=== PATIENT | female | born 1945 | race Caucasian/White ===

== ENCOUNTER 2016-12-05 11:01 | Emergency (ER) | payer OTHER ==
[2016-12-05 11:13] VITALS: RESP 16; TEMP 98.2
--- NOTE | 2016-12-05 12:16 | EDPHY ---
H & P Time Seen by Provider: 12/05/16 12:12 HPI/ROS: HPI: Ms. 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 Patient reports 3 weeks ago she was doing a particular move and strained her left inner groin. She has been resting it without relief. She has no primary care provider. Modifying Factors: No [id number] pain medications have been tried Comment: ROS: Eyes: No blurred vision Respiratory: No shortness of breath, no cough Cardiovascular: No chest pain Gastrointestinal: No nausea, no vomiting no diarrhea Genitourinary: No dysuria Extremities: No myalgias Neurologic: No weakness, no numbness Skin: No rashes Hematologic: No bruising, no bleeding MEDICAL/SURGICAL HISTORY: Appendectomy. Generally healthy. Social History: No primary care provider. Smoking Status: Never smoked Physical Exam: CONSTITUTIONAL: Physically fit elderly white female who appears younger than stated age, awake and alert, no obvious distress HEENT: Atraumatic and normocephalic, PERRL, EOMI. Tympanic membranes clear. . Oropharynx clear, no exudate and moist pink mucosa. Airway patent. No lymphadenopathy. No meningismus. Cardiovascular: Normal S1/S2, regular rate, regular rhythm, without murmur rub or gallop. PULMONARY/CHEST: Symmetrical and nontender. Clear to auscultation bilaterally Good air movement. No accessory muscle usage. ABDOMEN: Soft, nondistended, nontender, no rebound, no guarding, no peritoneal signs, no masses or organomegaly. No CVAT. EXTREMITIES: 2/2 pulses, no deformities, no clubbing, no cyanosis or edema. Left inner groin tenderness to palpation; no masses; no hernia. Left hip internal rotation no pain, external rotation pain, no pain with flexion. NEUROLOGICAL: no focal neuro deficits. GCS 15. SKIN: Warm and dry, no erythema. no rash. Good capillary refill. Constitutional: Initial Vital Signs Temperature (C) 36.8 C 12/05/16 11:11 Heart Rate 61 12/05/16 11:11 Respiratory Rate 16 12/05/16 11:11 Blood Pressure 115/59 L 12/05/16 11:11 O2 Sat (%) 92 12/05/16 11:11 O2 Delivery Mode Room Air Allergies/Adverse Reactions: No Known Allergies Allergy (Unverified 12/05/16 11:10) Home Medications: Medication Instructions Recorded NK [No Known Home Meds] 12/05/16 Medical Decision Making ED Course/Re-evaluation: Left hip x-ray, oral medication ordered No signs of incarcerated hernia/neurovascular compromise Patient politely refused ibuprofen and Flexeril Patient left the ER before x-rays could be obtained. Differential Diagnosis: Differential diagnosis includes but is not limited to muscle strain. - Data Points Medications Given: Discontinued Medications Cyclobenzaprine HCl (Flexeril) 10 mg PO EDNOW ONE Stop: 12/05/16 12:20 Last Admin: 12/05/16 13:51 Dose: Not Given Ibuprofen (Motrin) 800 mg PO EDNOW ONE Stop: 12/05/16 12:20 Last Admin: 12/05/16 13:52 Dose: Not Given Departure - Departure Disposition: Home, Routine, Self-Care Clinical Impression: Strain of left inguinal muscle Qualifiers: Encounter type: initial encounter Qualified Code(s): S39.013A - Strain of muscle, fascia and tendon of pelvis, initial encounter Condition: Good Instructions: Groin Strain (ED) Additional Instructions: Ice the area to reduce pain and swelling for 20-30 minutes every 3-4 hours for 2 -3 days until the pain is gone. Avoid any activities that aggravate the pain. Compressor thigh using elastic pre school manager tape as needed. Take anti-inflammatories like not ibuprofen and naproxen as needed for pain and swelling. Follow up with Orthopedics within 1-2 weeks if pain not resolved. Referrals: Cirilo Mendes MD [Medical Doctor] - As per Instructions NONE *PRIMARY CARE P,. [Primary Care Provider] - As per Instructions [facility],. [Clinic] - As per Instructions
[2016-12-05] MEDS ORDERED: IBUPROFEN 200 MG TAB PO ONE (12:19)
[2016-12-05] MEDS ORDERED: CYCLOBENZAPRINE 10 MG TAB PO ONE (12:19)
[2016-12-05 14:17] VITALS: BP 112/62; PULSE 62; O2SAT 96
== END 2016-12-05 14:19 | disposition home or self-care (01) ==
DX: S39.013A Strain of muscle, fascia and tendon of pelvis, initial encounter (principal); X58.XXXA Exposure to other specified factors, initial encounter; Y93.42 Activity, yoga